=== PATIENT | female | born 1995 | race Caucasian/White ===

== ENCOUNTER 2016-12-08 20:58 | Emergency (ER) | payer OTHER ==
[2016-12-08] MEDS ORDERED: NS 0.9% 1000 ML* 1,000 ML IV ONE (21:59)
[2016-12-08] MEDS ORDERED: Ketorolac INJ* 30 MG/ML 1 ML VIAL IV PUSH ONE (21:59)
[2016-12-08] MEDS ORDERED: diPHENhydraMINE IV* 50 MG/ML 1 ml VIAL (BENADRYL) IV ONE (21:59)
[2016-12-08] MEDS ORDERED: PROCHLORPERAZINE INJ 5 MG/ML 2 ML VIAL IV PRN (21:59)
[2016-12-08 22:30] LABS: Hematocrit 36 % (35-47); Hemoglobin 12.2 g/dl (12.0-16.0); Mean Corpuscular HGB Conc 34 g/dl (31-36); Mean Corpuscular Hemoglobin 30 pg (27-31); Mean Corpuscular Volume 88 fL (80-97); Mean Platelet Volume 8 um3 (7.4-10.4); Red Cell Distribution Width 13 % (10.5-15); White Blood Count 10.4 10^3/ul (3.5-10.8)
[2016-12-08 22:44] LABS: BUN/Creatinine Ratio 16.9 (8-20); Calcium 9.2 mg/dL (8.6-10.3); EGFR African American 121.7 (>60); EGFR Non-African American 94.6 (>60); Potassium 3.7 mmol/L (3.5-5.0)
[2016-12-08 23:05] VITALS: BP 118/76
--- NOTE | 2016-12-08 23:29 | ED ---
Bacilio Bryant Adam, scribed for Pascual John MD on 12/08/16 at 2118 . Headache - HPI Summary HPI Summary: Pt is a 21 year old female presenting with a FLEMING. She has a Hx of migraines for 6 -7 years which typically involve dull pain diffusely with localized pain around the right eye. She has been having one of these typical migraines for the past 2 weeks. However 4 days ago she began having increased pain in the back of her head which is new. 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 She spoke with her neurologist in [place] who said it is probably migraine- related. She was also seen at [place] and was told that it could be sinus- related. Pt came to the ED because she states that the pain is intolerable. She has taken the medications that usually alleviate her migraines and they have helped somewhat but the pain in the back of the head is persisting. - History Of Current Complaint Chief Complaint: EDHeadache Stated Complaint: HEADACHE Time Seen by Provider: 12/08/16 21:06 Hx Obtained From: Patient Onset/Duration: Gradual Onset, Started weeks ago, Still Present Initially Headache Was: Mild Currently Pain Is: Moderate Timing: Constant Character: Dull, Throbbing, Typical Headache, Migraine Location of Headache: Diffuse, Occipital Aggravating Factor: Other - Skiing Allevating Factors: Medication Associated Signs And Symptoms: Nausea - Allergies/Home Medications Allergies/Adverse Reactions: Allergies Allergy/AdvReac Type Severity Reaction Status Date / Time No Known Allergies Allergy Unverified 07/19/14 14:36 PMH/Surg Hx/FS Hx/Imm Hx Cardiovascular History: Reports: Hx Hypotension - Orthostatic Neurological History: Reports: Hx Migraine Infectious Disease History: No Infectious Disease History: Denies: Traveled Outside the [place] in Last 30 Days - Family History Known Family History: Positive: Other - Shoulder problem (mother) - Social History Occupation: Student Lives: Alone Review of Systems Negative: Fever Negative: Sore Throat, Nasal Discharge Positive: Nausea Positive: Headache All Other Systems Reviewed And Are Negative: Yes Physical Exam Triage Information Reviewed: Yes Vital Signs On Initial Exam: Initial Vitals Temp Pulse Resp BP Pulse Ox 98.2 F 83 18 148/75 100 12/08/16 21:00 12/08/16 21:00 12/08/16 21:00 12/08/16 21:00 12/08/16 21:00 Vital Signs Reviewed: Yes Appearance: Positive: Well-Appearing, No Pain Distress Skin: Positive: Skin Color Reflects Adequate Perfusion Eyes: Positive: ART ENT: Positive: Other - Bilateral serous effusion Neck: Positive: Other: - Reproducible right pericervical muscle pain. Negative : Enlarged Nodes @ Respiratory/Lung Sounds: Positive: Clear to Auscultation, Breath Sounds Present Cardiovascular: Positive: RRR Abdomen Description: Positive: Nontender, Soft Musculoskeletal: Positive: Strength/ROM Intact Neurological: Positive: Sensory/Motor Intact, Alert, Oriented to Person Place, Time Psychiatric: Positive: Affect/Mood Appropriate Diagnostics - Vital Signs Vital Signs Temp Pulse Resp BP Pulse Ox 12/08/16 21:00 98.2 F 83 18 148/75 100 - Laboratory Lab Results: Lab Results 12/08/16 12/08/16 Range/Units 22:05 22:05 WBC 10.4 (3.5-10.8) 10^3/ul RBC 4.10 (4.0-5.4) 10^6/ul Hgb 12.2 (12.0-16.0) g/dl Hct 36 (35-47) % MCV 88 (80-97) fL MCH 30 (27-31) pg MCHC 34 (31-36) g/dl RDW 13 (10.5-15) % Plt Count 342 (150-450) 10^3/ul MPV 8 (7.4-10.4) um3 Neut % (Auto) 61.6 (38-83) % Lymph % (Auto) 27.3 (25-47) % [place] % (Auto) 8.2 (1-9) % Eos % (Auto) 2.4 (0-6) % Baso % (Auto) 0.5 (0-2) % Absolute Neuts (auto) 6.4 (1.5-7.7) 10^3/ul Absolute Lymphs (auto) 2.8 (1.0-4.8) 10^3/ul Absolute Monos (auto) 0.9 H (0-0.8) 10^3/ul Absolute Eos (auto) 0.3 (0-0.6) 10^3/ul Absolute Basos (auto) 0 (0-0.2) 10^3/ul Absolute Nucleated RBC 0.01 10^3/ul Nucleated RBC % 0 Sodium 137 (133-145) mmol/L Potassium 3.7 (3.5-5.0) mmol/L Chloride 104 (101-111) mmol/L Carbon Dioxide 29 (22-32) mmol/L Anion Gap 4 (2-11) mmol/L BUN 13 (6-24) mg/dL Creatinine 0.77 (0.51-0.95) mg/dL Est GFR ( Amer) 121.7 (>60) Est GFR (Non-Af Amer) 94.6 (>60) BUN/Creatinine Ratio 16.9 (8-20) Glucose 94 (70-100) mg/dL Calcium 9.2 (8.6-10.3) mg/dL Result Diagrams: 12/08/16 22:05 12/08/16 22:05 Lab Statement: Any lab studies that have been ordered have been reviewed, and results considered in the medical decision making process. Headache Course/Dx - Diagnoses Differential Diagnosis/HQI/PQRI: Migraine, Tension Headache, Other - Primary concern for migrainous headache which feels typical, but prolonged. Low concern for meningoencephalitis or ICH. Normal behavior, but with headache according to mother. The neck pain is reproducible scalp pain with concern for sprain/strain. No other acute HEENT findings. Provider Diagnoses: Headache, Cervical muscle strain Discharge - Discharge Plan Condition: Improved Disposition: HOME Prescriptions: Butalb/Acetamin/Caff TAB* [Fioricet TAB*] 1 tab PO Q6H PRN #10 tab MDD 4 tabs PRN Reason: Headache Methocarbamol TAB* [Robaxin TAB*] 750 mg PO TID PRN #10 tab PRN Reason: Muscle Spasm Meds/Orders/Equipment: Physical Therapy Location: Determined By Patient Patient Education Materials: Cervical Strain (ED), Migraine Headache (ED) Referrals: Yahaira Portillo MD [Primary Care Provider] - If Needed Tyler Christopher MD [Medical Doctor] - 3 Days Additional Instructions: Please discuss a graded regimen for migraine treatment with your neurologist. This may require a daily, controller medications, as well as a graded, step- la progression of abortive medications. This plan is best laid by a neurologist. For the short term, motrin 600 mg every 6 hours, as well as Excedrin migraine as first line medication, then the fioricet and triptan for abortive medication. The documentation as recorded by the Bacilio canales Adam accurately reflects the service I personally performed and the decisions made by me, Pascual John MD.
== END 2016-12-08 23:05 | disposition home or self-care (01) ==
LOC: ED 20:58
DX: S16.1XXA Strain of muscle, fascia and tendon at neck level, initial encounter (principal); R51 Headache; R11.0 Nausea; X58.XXXA Exposure to other specified factors, initial encounter; Y93.23 Activity, snow (alpine) (downhill) skiing, snowboarding, sledding, tobogganing and snow tubing; Y92.9 Unspecified place or not applicable
CPT/HCPCS: 36415; 80048; 85025; 96374; 96375; 99282; J1200; J1885

== ENCOUNTER 2016-12-13 14:37 | Emergency (ER) | payer OTHER ==
[2016-12-13] MEDS ORDERED: PROCHLORPERAZINE INJ 5 MG/ML 2 ML VIAL IV PRN (17:25)
[2016-12-13] MEDS ORDERED: diPHENhydraMINE IV* 25 MG in NS 0.9% 50 ML* 50 ML IVPB ONE (17:25)
[2016-12-13] MEDS ORDERED: Ketorolac INJ* 30 MG/ML 1 ML VIAL IV PUSH ONE (17:25)
[2016-12-13] MEDS ORDERED: NS 0.9% 1000 ML* 1,000 ML IV ONE (17:25)
--- NOTE | 2016-12-13 17:32 | ED ---
Headache - HPI Summary HPI Summary: Patient presents for re-evaluation of L neck pain. 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 Denies any systemic symptoms, trauma, anticoagulant use. Has recurrent headaches and scheduled appointment with Neurology tomorrow. Came for analgesia. - History Of Current Complaint Chief Complaint: EDHeadache Stated Complaint: LOWER LT HEAD PAIN Time Seen by Provider: 12/13/16 17:19 Hx Obtained From: Patient Onset/Duration: Gradual Onset Currently Pain Is: Mild Timing: Intermittent, Lasting: - Allergies/Home Medications Allergies/Adverse Reactions: Allergies Allergy/AdvReac Type Severity Reaction Status Date / Time No Known Allergies Allergy Unverified 07/19/14 14:36 PMH/Surg Hx/FS Hx/Imm Hx Previously Healthy: Yes Cardiovascular History: Reports: Hx Hypotension - Orthostatic Neurological History: Reports: Hx Migraine Infectious Disease History: No Infectious Disease History: Denies: Traveled Outside the [place] in Last 30 Days - Family History Known Family History: Positive: Other - Shoulder problem (mother) - Social History Alcohol Use: None Substance Use Type: Reports: None Smoking Status (MU): Never Smoked Tobacco Review of Systems Negative: Photophobia, Blurred Vision, Diplopia Positive: Headache. Negative: Weakness, Paresthesia, Numbness, Syncope, Slurred Speech All Other Systems Reviewed And Are Negative: Yes Physical Exam Triage Information Reviewed: Yes Vital Signs On Initial Exam: Initial Vitals Temp Pulse Resp BP Pulse Ox 99.2 F 68 18 168/76 100 12/13/16 14:53 12/13/16 14:53 12/13/16 14:53 12/13/16 14:53 12/13/16 14:53 Vital Signs Reviewed: Yes Appearance: Positive: Well-Appearing, Well-Nourished, Pain Distress Skin: Positive: Warm, Skin Color Reflects Adequate Perfusion, Dry Head/Face: Positive: Normal Head/Face Inspection. Negative: Temporal Artery Tenderness, TMJ Tenderness, Cephalohematoma Eyes: Positive: Normal, EOMI, ART ENT: Positive: Normal ENT inspection, Hearing grossly normal, Pharynx normal Neck: Positive: Supple, Nontender, No Lymphadenopathy, Other: - Reproducible L occipital paracervical muscle ttp. No lesions/swelling, midline pain. Respiratory/Lung Sounds: Positive: Clear to Auscultation, Breath Sounds Present Cardiovascular: Positive: Normal, RRR, Pulses are Symmetrical in both Upper and Lower Extremities Abdomen Description: Positive: Nontender, No Organomegaly, Soft Musculoskeletal: Positive: Normal, Strength/ROM Intact Neurological: Positive: Normal, Sensory/Motor Intact, Alert, Oriented to Person Place, Time, CN Intact II-III, Reflexes Intact, Normal Gait, Heel to Toe, Finger to Nose, Facial Symmetry, Speech Normal. Negative: Abnormal Gait, Receptive Aphasia, Expressive Aphasia, Babinski Left, Babinski Right, Cerebellar Dysfunction, Disoriented, EOM Palsy, Facial Droop, Slurred Speech, Dysphagia, Ataxic Gait, Dysarthric Aphasia Diagnostics - Vital Signs Vital Signs Temp Pulse Resp BP Pulse Ox 12/13/16 16:39 99.2 F 56 16 125/72 100 12/13/16 15:43 99.0 F 59 16 138/74 100 12/13/16 14:53 99.2 F 68 18 168/76 100 - Laboratory Lab Statement: Any lab studies that have been ordered have been reviewed, and results considered in the medical decision making process. Headache Course/Dx - Diagnoses Differential Diagnosis/HQI/PQRI: Migraine, Subarachnoid Hemorrhage, Tension Headache, Other - Primary concern for migrainous headache recurrence with low concern for meningoencepahlitis or ICH. CT for occult ICH. She deferred LP again on this visit. Neck is again reproducible and sharp spasm like consistent with strain. DC home with PCP and Neurology FU. Provider Diagnoses: Headache Discharge - Discharge Plan Condition: Improved Disposition: HOME Prescriptions: Butalb/Acetamin/Caff TAB* [Fioricet TAB*] 1 tab PO Q6H PRN #10 tab MDD 8 PRN Reason: Headache Cyclobenzaprine TAB* [Flexeril TAB*] 10 mg PO BID PRN #7 tab PRN Reason: Muscle Spasm Patient Education Materials: Migraine Headache (ED) Referrals: Yahaira Portillo MD [Primary Care Provider] -
--- NOTE | 2016-12-13 18:07 | RAD ---
INDICATION: Headaches COMPARISON: None TECHNIQUE: Noncontrast axial source images were acquired from the skull base to the vertex. FINDINGS: Ventricles/sulci: The ventricles and cisterns are normal in size and configuration for age. Brain parenchyma: There is no focal parenchymal finding, evidence of intracranial mass, or intracranial mass effect. Intracranial hemorrhage:None. Extra-axial spaces: There are no abnormal extra axial fluid collections or evidence of extra-axial mass. Calvarium: There is no calvarial fracture or other calvarial abnormality. Scalp: There is no evidence of scalp or extracalvarial soft tissue abnormality. Paranasal sinuses/mastoid: The paranasal sinuses and mastoid air cells are clear. Other: None. IMPRESSION: NEGATIVE EXAMINATION
[2016-12-13 20:09] VITALS: BP 120/73
== END 2016-12-13 19:30 | disposition home or self-care (01) ==
LOC: ED 14:37
DX: R51 Headache (principal); M54.2 Cervicalgia
CPT/HCPCS: 70450; 96365; 99283; J0780; J1200; J1885

== ENCOUNTER 2016-12-15 16:19 | Emergency (ER) | payer OTHER ==
[2016-12-15] MEDS ORDERED: Metoclopramide IV* 5 MG/ML 2 ML VIAL IV ONE (16:32)
[2016-12-15] MEDS ORDERED: NS 0.9% 1000 ML* 1,000 ML IV ONE (16:32)
[2016-12-15] MEDS ORDERED: Valproic Acid IV(*) 500 MG in NS 0.9% 100 ML* 100 ML IVPB ONE (16:32)
[2016-12-15] MEDS ORDERED: Dihydroergotamine (D.H.E.)* 1 MG/ML 1 ML AMP IV SLOW PU ONE (16:32)
[2016-12-15] MEDS ORDERED: NS 0.9% 100 ML* 100 ML ONE (16:41)
--- NOTE | 2016-12-15 16:47 | ED ---
Headache - HPI Summary HPI Summary: Patient presents for re-evaluation of headache. She has been dealing with recurrent throbbing frontal headache for the last 2 to 3 weeks. Intermittent in nature, gradual onset, atraumatic. Has some L paracervical pain developing at a different time. Denies systemic symptoms, trauma, anticoagulant use. This is the 3rd visit for the identical complaint. Saw Dr. Manley yesterday, had a normal MRA done, yet was directed to the ED for another treatment plan. No change to severity or character of pain. - History Of Current Complaint Chief Complaint: EDHeadache Stated Complaint: HEADACHE Time Seen by Provider: 12/15/16 16:24 Hx Obtained From: Patient, Family/Inward Toll Operator - Mother Onset/Duration: Gradual Onset, Started weeks ago Initially Headache Was: Moderate Currently Pain Is: Moderate Timing: Intermittent, Lasting: Character: Throbbing - Allergies/Home Medications Allergies/Adverse Reactions: Allergies Allergy/AdvReac Type Severity Reaction Status Date / Time No Known Allergies Allergy Unverified 12/15/16 16:21 PMH/Surg Hx/FS Hx/Imm Hx Previously Healthy: Yes Endocrine/Hematology History: Denies: Hx Diabetes Cardiovascular History: Reports: Hx Hypotension - Orthostatic Denies: Hx Hypertension, Hx Pacemaker/ICD History: Denies: Hx Renal Disease Sensory History: Denies: Hx Hearing Aid Neurological History: Reports: Hx Migraine Psychiatric History: Denies: Hx Panic Disorder - Surgical History Surgery Procedure, Year, and Place: EAR TUBES CHILD Infectious Disease History: No Infectious Disease History: Denies: Traveled Outside the [place] in Last 30 Days - Family History Known Family History: Positive: Other - Shoulder problem (mother) - Social History Alcohol Use: None Substance Use Type: Reports: None Smoking Status (MU): Never Smoked Tobacco Review of Systems Negative: Fever, Chills Negative: Photophobia, Blurred Vision All Other Systems Reviewed And Are Negative: Yes Physical Exam Triage Information Reviewed: Yes Vital Signs On Initial Exam: Initial Vitals Temp Pulse Resp BP Pulse Ox 99.2 F 75 16 129/70 98 12/15/16 16:21 12/15/16 16:21 12/15/16 16:21 12/15/16 16:21 12/15/16 16:21 Vital Signs Reviewed: Yes Appearance: Positive: Well-Appearing, No Pain Distress, Well-Nourished Skin: Positive: Warm, Skin Color Reflects Adequate Perfusion, Dry Head/Face: Positive: Normal Head/Face Inspection. Negative: Temporal Artery Tenderness, TMJ Tenderness, Cephalohematoma Eyes: Positive: Normal, EOMI, ART ENT: Positive: Normal ENT inspection, Hearing grossly normal Neck: Positive: Supple, Nontender, No Lymphadenopathy Respiratory/Lung Sounds: Positive: Clear to Auscultation, Breath Sounds Present Cardiovascular: Positive: Normal, RRR, Bradycardia Abdomen Description: Positive: Nontender, No Organomegaly, Soft Musculoskeletal: Positive: Normal, Strength/ROM Intact Neurological: Positive: Normal, Sensory/Motor Intact, Alert, Oriented to Person Place, Time, CN Intact II-III, Reflexes Intact, NV Bundle Intact Distally, Normal Gait. Negative: Cerebellar Dysfunction Diagnostics - Vital Signs Vital Signs Temp Pulse Resp BP Pulse Ox 12/15/16 16:21 99.2 F 75 16 129/70 98 - Laboratory Lab Statement: Any lab studies that have been ordered have been reviewed, and results considered in the medical decision making process. Headache Course/Dx - Diagnoses Differential Diagnosis/HQI/PQRI: Migraine, Tension Headache, Other - Primary concern for tension type headache and cervical neck strain. She does not appear to be in any more than mild distress, yet continues to come to the ED. Non toxic appearing and low concern for ICH or meningoencephalitis. Discussion with Neurologist and they recommend IV medications and office FU. Provider Diagnoses: Headache - Physician Notifications Discussed Care Of Patient With: Dr. Manley recommends IV Reglan , DHE, Depakote and DC home with office FU. He performed outpatient MRA without ICH or infection. Discharge - Discharge Plan Condition: Improved Disposition: HOME Patient Education Materials: General Headache (ED) Referrals: [facility] LEORA Winter [Primary Care Provider] - Tracy Manley MD [Medical Doctor] -
[2016-12-15 18:15] VITALS: BP 121/72
== END 2016-12-15 18:14 | disposition home or self-care (01) ==
LOC: ED 16:19
DX: R51 Headache (principal)
CPT/HCPCS: 36415; 85652; 86140; 99284; J1110; J2765